=== PATIENT | male | born 2005 | race Caucasian/White ===

== ENCOUNTER 2024-02-19 15:52 | Emergency (ER) | payer OTHER, SELFPAY ==
[2024-02-19 15:56] VITALS: BP 144/74
[2024-02-19 16:17] LABS: % Basophils 0.7 % (0-2); % Immature Granulocytes 0.4 % (0-0.5); % Lymphocytes 14.7 % (20.5-51.1); % Monocytes 12.4 % (1.7-9.3); % Neutrophils 70.8 % (42.2-75.2); Absolute Basophils 0.1 10^3/uL (0-0.2); Absolute Eosinophils 0.1 10^3/uL (0-0.7); Absolute Lymphocytes 1.1 10^3/uL (1.2-3.4); Absolute Monocytes 0.9 10^3/uL (0.1-0.6); Absolute Neutrophils 5.1 10^3/uL (1.4-6.5); Hematocrit 46.4 % (39.0-52.0); Hemoglobin 15.5 g/dL (13.0-18.0); Mean Corp Hgb Conc. 33.4 g/dL (33.0-37.0); Mean Corpuscular Hgb 29.5 pg (27.0-31.0); Mean Corpuscular Volume 88.4 fL (80.0-94.0); Mean Platelet Volume 8.7 fL (7.4-10.4); Nucleated Red Blood Cells % 0 % (-); Platelet Count 193 10^3/uL (130-400); Red Blood Cell Count 5.25 10^6/uL (4.70-6.10); Red Cell Dist. Width 12.4 % (11.5-14.5); White Blood Cell Count 7.3 10^3/uL (4.8-10.8)
[2024-02-19 16:31] LABS: ALT (SGPT) 20 U/L (0-50); AST (SGOT) 32 U/L (17-59); Albumin 4.8 g/dl (3.5-5.0); Alkaline Phosphatase 63 U/L (38-126); Blood Urea Nitrogen 13 mg/dl (9-20); Calcium 9.9 mg/dl (8.4-10.2); Carbon Dioxide 26 mmol/L (22-30); Chloride 100 mmol/L (98-107); Glucose 102 mg/dl (70-99); Potassium 4.4 mmol/L (3.5-5.1); Sodium 136 mmol/L (135-145); Total Bilirubin 1.7 mg/dl (0.2-1.3); Total Protein 7.7 g/dl (6.3-8.2); eGFR > 60.00
--- NOTE | 2024-02-19 17:17 | ED.GENMED ---
History of Present Illness
General
Chief Complaint: Musculo-Skeletal Complaint
Source: patient
Exam Limitations: none
Time Seen by Provider: 02/19/24 16:58
Nursing documentation reviewed up to this point in time: agreed with
Travel History
Have you had any contact with someone who has COVID-19?: No
Do you have any symptoms of coronavirus? Fever > 100 degrees, chills, cough, shortness of breath, sore throat, loss of taste or smell, muscle aches, or headache?: No
History of Present Illness
History of Present Illness:
18-year-old male presents emergency department complaining of a headache and neck pain. He denies having had any fever. His mother states he woke up in a sweat.
Past History
Past History
ED Past Medical History: None
ED Past Surgical History: Orthopedic (Right wrist)
Social History
Tobacco: Non-smoker
Alcohol: None
Drug: None
Living: with family
Review of Systems
Review of Systems
Allergies reviewed?: Yes
All Other Systems: Not applicable
Phy Exam
Physical Exam
Physical Exam:
Physical Exam
General: no apparent distress, not acutely ill
Neck: supple. no meningeal signs. normal posterior pharynx, mild tenderness to palpation at base of neck
Heart: s1/s2 regular rate and rhythm, no murmur. equal radial
pulses.
HEENT: Pupils equal round reactive to light, EOMI
Lungs: no acute respiratory distress. clear bilaterally
Abdomen: normal bowel sounds. not tender. no CVAT
Neuro: alert and oriented. no focal neurological deficits cranial nerves II through XII intact
Skin: no rash
Psychiatric: well kept. interactive and cooperative
Extremities: no edema. no calf tenderness. negative homans. good distal pulses
Course
Orders/Labs/Results
Orders:
Orders
02/19/24 16:02
CBC/With Diff [Complete Blood Count/With Diff] Urgent
CMP [Comprehensive Metabolic Panel] Urgent
02/19/24 17:13
CT Head W/o Iv Contrast Urgent
Comment:
Reason For Exam: headache 2 days
02/19/24 17:15
Ketorolac [Toradol] 15 mg IV NOW STA
02/19/24 17:40
Monotest Urgent
Influenza A+B Rapid Molecular Urgent
REINALDO Source: Nasal Swab
Specimen Description:
Rapid Strep Group A Urgent
REINALDO Source: Throat/Pharynx
Specimen Description:
Date Specimen was Collected: 02/19/24
Time Specimen was Collected: 17:17
Abnormal Lab Results
02/19/24
16:02
Absolute Lymphs (auto) 1.1 L 10^3/uL
(1.2-3.4)
Absolute Monos (auto) 0.9 H 10^3/uL
(0.1-0.6)
Lymphocytes % 14.7 L %
(20.5-51.1)
Monocytes % 12.4 H %
(1.7-9.3)
Glucose 102 H mg/dl
(70-99)
Total Bilirubin 1.7 H mg/dl
(0.2-1.3)
02/19/24 16:02
02/19/24 16:02
Vital Signs
Initial and Last Documented VS:
Initial Vital Signs
Temp Pulse Resp BP Pulse Ox
98.8 F 61 18 144/74 96
02/19/24 15:56 02/19/24 15:56 02/19/24 15:56 02/19/24 15:56 02/19/24 15:56
Last Documented Vital Signs
Temp Pulse Resp BP Pulse Ox
98.8 F 92 18 114/72 95
02/19/24 15:56 02/19/24 19:11 02/19/24 15:56 02/19/24 19:11 02/19/24 19:11
MDM/Problems Addressed
Differential Diagnosis Includes:
Meningitis, intracranial hemorrhage, tumor, tension headache
MDM/Problems Addressed:
18-year-old male with headache, likely tension headache. No meningismus. Afebrile. Do not suspect meningitis. Normal head CT. Stable for discharge. Improved after Toradol.
*Radiology
Radiology exam reviewed: radiology read reviewed (CT head no acute findings)
*Pulse Oximetry
Patient hypoxic: no
*EKG
Interpreted by ED Provider?: NA
*Beater Out Leveling Machine Interpretation
Rate: Beater Out Leveling Machine- N/A
*Critical Care Note
Total Time (30-74mins, 75-104mins- exclusive of procedures): Not Applicable
Patient Management
Escalation/DeEscalation of care consider admission/obs:
Admit not indicated
ED Attending Note
-
Portions of this chart may have been created with voice recognition software.� Occasional wrong word or��sound alike� substitutions may have occurred due to the inherent limitations of voice recognition software.
Discharge Plan
Departure
Patient Disposition: Home (Routine Discharge)
Date of Disposition: 02/19/24
Time of Disposition: 19:16
Patient with high blood pressure during this ER visit?: No
Condition: Good
Discharge Problem:
Headache
Instructions: Tension Headache (DC)
Prescriptions:
No Action
No Current Medications
0
Referrals:
NONE,* [Family Provider] -
Activity Restrictions/Additional Instructions:
Follow up with primary care. Return for any concerns. Follow-up with primary care in 3 to 5 days.
Interventions
Interventions:
*Risk Screen - Suicide Last Done: 02/19/24 15:56
*General Assessment Last Done: 02/19/24 15:56
*Neglect/Abuse Screening Last Done: 02/19/24 15:56
*ED COVID-19 Vaccine History Last Done: 02/19/24 15:56
ED-Musculoskeletal Assessment Last Done: 02/19/24 19:12
Discharge Date and Time
Print Language: HUNGARIAN
[2024-02-19] MEDS: TORADOL 15 MG IV (17:40)
[2024-02-19 18:17] LABS: Monotest Negative (Negative)
[2024-02-19 19:11] VITALS: BP 114/72
== END 2024-02-19 19:36 | disposition home or self-care (01) ==
LOC: EMR 15:52
PROVIDERS: Emergency Medicine; EMERGENCY PHYSICIAN Emergency Medicine
DX: R51.9 Headache, unspecified (principal); M54.2 Cervicalgia; R50.9 Fever, unspecified; R61 Generalized hyperhidrosis
CPT/HCPCS: 99284; 96374; 70450; 80053; 85025; 86308; 87070; 87502; 87880